=== PATIENT | male | born 2005 | race Caucasian/White ===

== ENCOUNTER 2025-08-03 13:22 | Emergency (ER) | payer BC, SELFPAY ==
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
[2025-08-03 13:37] VITALS: BP 107/66; PULSE 102; RESP 18; TEMP 37.1; O2SAT 98; BMI 29.8
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
[2025-08-03] MEDS: LIDOCAINE 5% PATCH 1 PATCH TRANSDERMA (14:57)
[2025-08-03 15:16] LABS: Hematocrit* 47.6 % (37.0-53.0); Hemoglobin* 16.0 gm/dL (13.5-17.5); Immature Granulocytes Abs Auto 0.02 K/uL (0.00-0.30); Immature Granulocytes Pct Auto 0.3 %; Lymphocytes Absolute Auto 1.77 K/uL (0.90-2.90); Mean Corpuscular HGB Conc 34 gm/dL (32-36); Mean Corpuscular Hemoglobin 28 pg (26-34); Mean Corpuscular Volume 84 fL (80-100); RDW Coefficient of Variation % 11.7 % (11.5-15.5); Red Blood Count* 5.69 m/uL (4.30-5.90); White Blood Count* 6.45 K/uL (4.50-11.00)
[2025-08-03 15:17] LABS: Slide Review Reflex No
[2025-08-03 15:28] LABS: Chloride* 101 mmol/L (96-114)
[2025-08-03 15:29] LABS: Potassium* 4.3 mmol/L (3.6-5.1); Sodium* 140 mmol/L (135-149)
[2025-08-03 15:31] LABS: Blood Urea Nitrogen* 20 mg/dL (5-24); Creatinine* 0.9 mg/dL (0.5-1.5); Est. Creatinine Clearance* 121.39; Estimated Glomerular Filt Rate 125 ml/min
[2025-08-03 15:32] LABS: Anion Gap 12 mEq/L (7-15); Calcium* 9.9 mg/dL (8.4-10.6); Carbon Dioxide* 27 mmol/L (20-32); Glucose* 98 mg/dL (60-115)
[2025-08-03 16:43] VITALS: BP 111/70; PULSE 90; RESP 18; TEMP 37.1; O2SAT 98
[2025-08-03 16:44] VITALS: BP 111/70; PULSE 90; RESP 18; TEMP 37.1
== END 2025-08-03 16:44 | disposition home or self-care (01) ==
PROVIDERS: Emergency Provider Family Medicine; PCP Family Medicine
DX: M53.3 Sacrococcygeal disorders, not elsewhere classified (principal); R10.30 Lower abdominal pain, unspecified
CPT/HCPCS: 36415; 80048; 85025; 86140; 99283; 99284; A9270